=== PATIENT | male | born 1960 | race Two or more races ===

== ENCOUNTER 2017-04-12 19:47 | Emergency (ER) | payer SELFPAY ==
[~2017-04-12] VITALS: Ht 180.3 cm; Wt 104.3 kg
[2017-04-12] MEDS ORDERED: LIDOCAINE 1% HCL (LOCAL ANESTH.) INJ 20ML MDV ONE (20:02)
[2017-04-12] MEDS ORDERED: TETANUS-DIPTH-ACEL PERTUSSIS 0.5ML SYRG IM ONE (20:15)
[2017-04-12] MEDS ORDERED: LIDOCAINE 1% HCL (LOCAL ANESTH.) INJ 20ML MDV IJ ONE (20:30)
[2017-04-12] MEDS ORDERED: cefTRIAXone 1GM/50ML D5W 50 ML IV ONE (20:45)
[2017-04-12] MEDS ORDERED: SODIUM CHLORIDE 0.9% 1,000 ML IV ONE (20:45)
[2017-04-13 01:16] VITALS: BP 116/73
== END 2017-04-13 01:25 | disposition short-term general hospital (02) ==
LOC: ER 19:57
DX: S51.012A Laceration without foreign body of left elbow, initial encounter (principal); W11.XXXA Fall on and from ladder, initial encounter; Y93.89 Activity, other specified; Y99.8 Other external cause status; Y92.89 Other specified places as the place of occurrence of the external cause
CPT/HCPCS: 73080; 90471; 90715; 96361; 96365; 99291; J0696; J2001